=== PATIENT | male | born 1940 | race Caucasian/White ===

== ENCOUNTER 2018-01-03 19:13 | Emergency (ER) | payer OTHER ==
[2018-01-03 19:21] VITALS: BP 125/69
--- NOTE | 2018-01-03 19:30 | EDPHY ---
H & P Stated Complaint: missed step hit wall shelf with head, laceration to top of head Time Seen by Provider: 01/03/18 19:29 - Personal History Current Tetanus Diphtheria and Acellular Pertussis (TDAP): Yes - Medical/Surgical History Hx Asthma: No Hx Chronic Respiratory Disease: No Hx Diabetes: No Hx Cardiac Disease: No Hx Renal Disease: No Hx Cirrhosis: No Hx Alcoholism: No Hx HIV/AIDS: No Hx Splenectomy or Spleen Trauma: No Other PMH: left soulder surgry - Social History Smoking Status: Never smoked Constitutional: Initial Vital Signs Temperature (C) 36.9 C 01/03/18 19:18 Heart Rate 67 01/03/18 19:18 Respiratory Rate 16 01/03/18 19:18 Blood Pressure 125/69 H 01/03/18 19:18 O2 Sat (%) 93 01/03/18 19:18 O2 Delivery Mode Room Air Allergies/Adverse Reactions: Sulfa (Sulfonamide Antibiotics) Allergy (Verified 03/30/14 20:22) Home Medications: Medication Instructions Recorded Advil 01/03/18 Aleve 01/03/18 CEPHALEXIN 01/03/18 Medical Decision Making ED Course/Re-evaluation: CHIEF COMPLAINT: Head injury HISTORY OF PRESENT ILLNESS: The patient is a 77 y/o male complaining of hitting his head on a shelf after missing a step on the stairs. He denies loss of consciousness, headache, nausea , vomiting, difficulty walking. As the patient recently had shoulder surgery, he wanted to make sure that there was no sign of infection or serious injury. No chest pain, shortness of breath, abdominal pain, urinary or bowel complaints , numbness, paresthesias, fevers. REVIEW OF SYSTEMS: A comprehensive 10 system review of systems is otherwise negative aside from elements mentioned in the history of present illness and medical decision making. PHYSICAL EXAM: HR, BP, O2 Sat, RR. Temp noted General Appearance: Alert, well hydrated, appropriate, and non-toxic appearing. Head: 1.5 cm superficial horizontal laceration to the frontal scalp. Eyes: Pupils equal, round, reactive to light and accommodation, EOMI, no trauma , no injection. Ears: Clear bilaterally, no perforation, normal landmarks Nose: Atraumatic, no rhinorrhea, clear. Throat: There is no erythema or exudates, no lesions, normal tonsils, mucus membranes moist. Neck: Supple, 2+ carotid upstroke, nontender, no lymphadenopathy. Respiratory: No retractions, no distress, no wheezes, and no accessory muscle use. Lungs are clear to auscultation bilaterally. Cardiovascular: Regular rate and rhythm, no murmurs, rubs, or gallops. Bilateral carotid, radial, dorsalis pedis, and posterior tibial pulses intact. Good capillary refill all extremities. Gastrointestinal: Abdomen is soft, nontender, non-distended, no masses, no rebound, no guarding, no peritoneal signs. Musculoskeletal: Normal active ROM of all extremities, atraumatic. Neurological: Alert, appropriate, and interactive. The patient has normal DTRs and non-focal cranial nerves, motor, sensory, and cerebellar exam. Skin: No rashes, good turgor, no nodules on palpation. Past medical history: Denies Past surgical history: Left shoulder surgery Family history: Denies Social history: , lives in [place], professor at DIAGNOSTICS/PROCEDURES/CRITICAL CARE TIME: Not indicated. DIFFERENTIAL DIAGNOSIS: The differential diagnosis for the patient's head injury included but was not limited to laceration, concussion, skull fracture, intra-parenchymal contusion, subarachnoid, subdural and epidural hematoma. MEDICAL DECISION MAKING: The patient is a 77 y/o male presenting with hitting his head and sustaining a laceration on his scalp after hitting his head on a shelf after missing a step on the stairs. On exam he has a 1.5 cm superficial horizontal laceration to the frontal scalp. He does not meet [place] CT criteria. I will [place] the superficial laceration. 1948: Reassessed patient and discussed return precautions. Patient is comfortable with this plan. Departure - Departure Disposition: Home, Routine, Self-Care Clinical Impression: Laceration Head injury Qualifiers: Encounter type: initial encounter Qualified Code(s): S09.90XA - Unspecified injury of head, initial encounter Condition: Good Instructions: Laceration (ED), Head Injury (ED) Additional Instructions: 1. Follow-up with your primary doctor within 72 hours. 2. Return to the Emergency Department for severe headache, vomiting, vision changes, confusion, fever or other concerns. Referrals: Pasquale Nayak MD [Primary Care Provider] - As per Instructions Report Scribed for: Kev Andrade Report Scribed by: Julissa Michael Date of Report: 01/03/18 Time of Report: 19:30
[2018-01-03] MEDS ORDERED: SKIN ADHESIVE (DERMABOND) 1 EACH TP ONE (19:37)
== END 2018-01-03 19:55 | disposition home or self-care (01) ==
PROC: 0HQ0XZZ Repair Scalp Skin, External Approach (ICD-10-PCS; principal; 2018-01-03)
DX: S01.01XA Laceration without foreign body of scalp, initial encounter (principal); S09.90XA Unspecified injury of head, initial encounter; W22.8XXA Striking against or struck by other objects, initial encounter; Y92.9 Unspecified place or not applicable; Y93.9 Activity, unspecified; Y99.9 Unspecified external cause status

== ENCOUNTER → 2018-07-02 | Outpatient (CLI) | payer OTHER | LOC: FIMAGING 13:59 | PROVIDERS: ATTEND Internal Medicine | DX: R22.1 Localized swelling, mass and lump, neck (principal) ==